=== PATIENT | female | born 1940 | race Caucasian/White ===

== ENCOUNTER 2017-11-06 13:46 | Emergency (ER) | payer MEDICARE, OTHER ==
[2017-11-06 14:51] VITALS: BP 138/78
--- NOTE | 2017-11-06 15:54 | UC ---
Head Injury HPI - HPI Summary HPI Summary: Fara has sore left ear and sore throat, denies fever or cough - History Of Current Complaint Chief Complaint: UCRespiratory Stated Complaint: ST Time Seen by Provider: 11/06/17 15:45 Hx Obtained From: Patient ?: No Onset/Duration: Sudden Onset, Lasting Days Severity Currently: Moderate Severity Initially: Moderate - Allergies/Home Medications Allergies/Adverse Reactions: Allergies Allergy/AdvReac Type Severity Reaction Status Date / Time No Known Allergies Allergy Verified 11/06/17 14:48 Home Medications: Home Medications Atenolol TAB* [Tenormin TAB* 50 MG] 50 mg PO DAILY 11/06/17 [History Confirmed 11/06/17] Citalopram TAB* [CeleXA TAB*] 40 mg PO DAILY 11/06/17 [History Confirmed ] Gemfibrozil TAB* [Lopid TAB*] 600 mg PO BID 11/06/17 [History Confirmed ] Omeprazole CAP* [Prilosec CAP* 20 MG] 20 mg PO DAILY 11/06/17 [History Confirmed 11/06/17] Pravastatin Sodium [Pravachol] 40 mg PO DAILY 11/06/17 [History Confirmed ] oxyCODONE/Acetam5/325MG PREPAK [Percocet 5/325 TAB*] 1 tab PO TID 11/06/17 [ History Confirmed 11/06/17] PMH/Surg Hx/FS Hx/Imm Hx Previously Healthy: Yes - Surgical History Surgical History: Yes Surgery Procedure, Year, and Place: neck and back - Family History Known Family History: Positive: Respiratory Disease - Social History Alcohol Use: None Substance Use Type: None Smoking Status (MU): Never Smoked Tobacco Review of Systems Constitutional: Negative Skin: Negative Eyes: Negative ENT: Sore Throat, Ear Ache Respiratory: Cough Cardiovascular: Negative Gastrointestinal: Negative Genitourinary: Negative Motor: Negative Neurovascular: Negative Musculoskeletal: Negative Neurological: Negative Psychological: Negative Is Patient Immunocompromised?: No All Other Systems Reviewed And Are Negative: Yes Physical Exam Triage Information Reviewed: Yes Appearance: Well-Nourished, Ill-Appearing, Pain Distress Vital Signs: Initial Vital Signs Temp 98.1 F 11/06/17 14:43 Pulse 81 11/06/17 14:43 Resp 18 11/06/17 14:43 BP 138/78 11/06/17 14:43 Pulse Ox 96 11/06/17 14:43 Vital Signs Reviewed: Yes Eye Exam: Normal ENT: Positive: Pharyngeal erythema, TMs normal, TM bulging, TM dull - left otitis, Tonsillar swelling - left Dental Exam: Normal Neck exam: Normal Neck: Positive: Supple, Nontender, Enlarged Nodes @ - left cervical Respiratory Exam: Normal Respiratory: Positive: Chest non-tender, Lungs clear, Normal breath sounds Cardiovascular Exam: Normal Cardiovascular: Positive: RRR, No Murmur, Pulses Normal Abdominal Exam: Normal Abdomen Description: Positive: Nontender, No Organomegaly, Soft Bowel Sounds: Positive: Present Musculoskeletal Exam: Normal Neurological Exam: Normal Psychological Exam: Normal Skin Exam: Normal Head Injury Course/Dx - Course Course Of Treatment: hx obtained, exam performed ,meds reviewed, treated for left otitis media and wheezing - Differential Dx/Diagnosis Differential Diagnosis/HQI/PQRI: Other Provider Diagnoses: otitis media, pharyngitis. wheezing Discharge - Discharge Plan Condition: Stable Disposition: HOME Prescriptions: Amoxicillin PO (*) [Amoxicillin 875 MG (*)] 875 mg PO BID #20 tab predniSONE TAB* [Deltasone TAB*] 40 mg PO DAILY #14 tab Patient Education Materials: Ear Infection (ED) Referrals: Cesar Marroquin MD [Primary Care Provider] - Additional Instructions: 1. take the medication as prescribed. 2. Increase fluid intake and get plenty of rest. 3. Follow up as needed.
== END 2017-11-06 16:00 | disposition home or self-care (01) ==
LOC: UCCORT 13:46
DX: H66.92 Otitis media, unspecified, left ear (principal); R06.2 Wheezing
CPT/HCPCS: 99212; G0463